=== PATIENT | male | born 1970 | race Asian ===

== ENCOUNTER 2018-06-07 12:23 | Outpatient (CLI) | payer BC ==
--- NOTE | 2018-06-07 16:42 | NM ---
NUCLEAR MEDICINE HIDA SCAN WITH EF: 06/07/18 HISTORY: Epigastric pain. COMPARISON: None. TECHNIQUE: Patient administered 5 millicuries of technetium 99m Mebrofenin intravenously. Gallbladder ejection f raction was determined after the patient administered 8 oz. of Ensure. FINDINGS: There is appropriate uptake of the radiotracer. There is localization of the radiotracer in the gallb ladder. There is passage of radiotracer from the common bile duct into small bowel loops. Gallbladder ejection fraction is 80%. IMPRESSION: 1. No scintigraphic evidence of acute cholecystitis. 2. 80% ejection fraction. POS: [facility]
== END 2018-06-07 12:24 | disposition home or self-care (01) ==
LOC: NM 12:23
PROVIDERS: ATTEND Physician Assistant Medical
DX: R10.13 Epigastric pain (principal); R19.4 Change in bowel habit; Z86.010 Personal history of colon polyps; Z80.9 Family history of malignant neoplasm, unspecified
CPT/HCPCS: 78227; A9537